=== PATIENT | male | born 1965 | race African-American/Black ===

== ENCOUNTER 2018-08-23 | Emergency (ER) | payer MEDICAID ==
[~2018-08-23] VITALS: Ht 177.8 cm; Wt 91.0 kg
[2018-08-23] MEDS ORDERED: TETANUS, DIPHTHERIA, PERTUSSIS VAC/PF 0.5ML (>7YR OLD) IM ONE (00:45)
[2018-08-23] MEDS ORDERED: LIDOCAINE HCL/PF 1% 2ML VIAL INFIL ONE (00:45)
[2018-08-23] MEDS ORDERED: BACITRACIN ZINC OINT UDPKT TOP ONE (00:45)
[2018-08-23] MEDS ORDERED: POVIDONE-IODINE 10% TOPICAL SOLN 240ML TOP ONE (00:45)
[2018-08-23] MEDS ORDERED: LIDOCAINE HCL/PF 1% 10 MG/ML 5ML VIAL IJ SCH (01:30)
[2018-08-23 06:57] VITALS: BP 145/89
== END 2018-08-23 06:59 | disposition home or self-care (01) ==
LOC: ER
DX: S51.812A Laceration without foreign body of left forearm, initial encounter (principal); I10 Essential (primary) hypertension; F17.200 Nicotine dependence, unspecified, uncomplicated; E11.9 Type 2 diabetes mellitus without complications; W26.0XXA Contact with knife, initial encounter; Y93.89 Activity, other specified; Y92.89 Other specified places as the place of occurrence of the external cause; Y99.8 Other external cause status; Z98.890 Other specified postprocedural states; Z88.0 Allergy status to penicillin; Z88.4 Allergy status to anesthetic agent
CPT/HCPCS: 12002; 73090; 90471; 90715; 99284; A4246; J3490